=== PATIENT | female | born 1955 | race Caucasian/White ===

== ENCOUNTER 2023-08-09 13:47 | Emergency (ER) | payer MEDICARE, OTHER ==
[~2023-08-09] VITALS: Ht 154.9 cm; Wt 74.7 kg
[2023-08-09 13:49] VITALS: BP 130/73; PULSE 118; RESP 20; TEMP 100.7; O2SAT 96
[2023-08-09] MEDS ORDERED: CEFD300C3 PO (14:00)
== END 2023-08-09 14:15 | disposition home or self-care (01) ==
LOC: ER 13:47
DX: J40 Bronchitis, not specified as acute or chronic (principal)
CPT/HCPCS: 99283